=== PATIENT | female | born 1985 | race African-American/Black ===

== ENCOUNTER 2016-07-12 10:54 | Emergency (ER) | payer OTHER ==
--- NOTE | ~2016-07-12 | US106 ---
[facility] A Service of [facility] RADIOLOGY TEXT RESULTS PATIENT: YAMILETH OZUNA LOCATION: SED : 87 UNIT #: [id number] AGE: [address]: Jesus Bartlett MD SEX: F ORDER DR: [id number] [address] [address] [id number] E MR#: [id number] Acc #: [id number] NAME: YAMILETH OZUNA : 1985 SEX: F STUDY DATE/TIME: 07/12/2016 13:56 UNIT: SED ROOM: STUDY DESCRIPTION: US Preg Uterus Transvaginal Attending Physician: Jesus Bartlett M.D. Ordering Physician: Jesus Bartlett M.D. Primary Care Physician: [facility]. MEDICAL IMAGING REPORT This report is preliminary unless electronic signature is present. EXAM Pelvic sonogram. DATE OF EXAM 07/12/2016 CLINICAL HISTORY 30-year-old female positive test with beta HCG of over 60,000. Complains of abdominal pain, vomiting, cramping x1 week. TECHNIQUE Real-time examination was performed utilizing endovaginal scanning. FINDINGS Examination demonstrates a crescent-shaped anechoic collection within the endometrial cavity compatible with a gestational sac, but this represents an irregular gestational sac. Yolk sac is identified but no pole identified and no heart rate detected. This should be visualized with a quantitative HCG of over 60,000. There is also a small amount of fluid surrounding the gestational sac. Imaging of the adnexa demonstrates ovaries to be normal bilaterally. No adnexal masses. No free fluid. Gestational sac measures over 25 mm with a nonvisualization of a normal embryo. This in a combination with the absence of heart rate and pole, with a beta HCG of over 60,000 would be compatible with a failed intrauterine . IMPRESSION Abnormal gestational sac noted within the uterine cavity, but the absence of heart rate, absence of a defined pole as well as the abnormal appearance of the gestational sac are findings all compatible with failed intrauterine . [facility] A Service of [facility] RADIOLOGY TEXT RESULTS PATIENT: YAMILETH OZUNA LOCATION: SED : 87 UNIT #: [id number] AGE: [address]: Jesus Bartlett MD SEX: F ORDER DR: Dictated by... Chevy Morin M.D. THIS IS AN ELECTRONICALLY VERIFIED REPORT Chevy Morin M.D. at 07/13/2016 2:04 PM Whitney TD: 07/12/2016 23:03 JOB #: [id number] MEDICAL IMAGING REPORT
[~2016-07-12 10:54] MED LIST: ALBUTEROL17 GM INH; LEXAPRO PO; MOTRIN600 MG PO; PROPRANOLOL HCL10 MG PO
[2016-07-12 11:41] LABS: BASOPHIL# 0.1 X10e3 (0-0.3); BASOPHIL% 0.6 % (0-2.5); EOSINOPHIL# 0.1 X10e3 (0-0.7); EOSINOPHIL% 0.7 % (0.0-7.0); HEMATOCRIT 39.3 % (35.0-45.0); HEMOGLOBIN 13.2 gm/dL (12.0-16.0); LYMPHOCYTE% 23.8 % (17.0-45.0); MEAN CELL VOLUME 92.5 FL (83-96); MEAN CORPUSCULAR HEMOGLOBIN 31.1 PG (28-34); MEAN CORPUSCULAR HGB CONC 33.6 g/dL (30-36); MEAN PLATELET VOLUME 9.2 FL (6.5-11.5); MONOCYTE# 0.6 X10e3 (0-1.0); MONOCYTE% 7.7 % (3.0-12.0); NEUTROPHIL# 5.6 X10e3 (1.5-7.1); NEUTROPHIL% 67.2 % (40-75); PLATELET COUNT 145 X10e3 (140-420); RED BLOOD COUNT 4.24 X10e (3.90-5.30); RED CELL DISTRIBUTION WIDTH 12.9 % (11.0-15.5); WHITE BLOOD COUNT 8.4 X10e3 (4.0-10.5)
[2016-07-12 11:45] LABS: DIFF IND NO
[2016-07-12 11:47] LABS: URINE SOURCE CLEAN CATCH
[2016-07-12 11:49] LABS: URINE APPEARANCE CLEAR; URINE BILIRUBIN NEG (NEG); URINE BLOOD NEG (NEG); URINE COLOR YELLOW; URINE GLUCOSE NEG (NORM); URINE KETONE NEG (NEG); URINE LEUKOCYTE ESTERASE NEG (NEG); URINE NITRATE NEG (NEG); URINE PROTEIN NEG (NEG); URINE SPECIFIC GRAVITY 1.025 (1.003-1.035); URINE UROBILINOGEN 0.2 MG/DL (NORM)
[2016-07-12 11:50] LABS: MICRO INDICATED? NO
[2016-07-12 11:59] LABS: ALKALINE PHOSPHATASE 39 U/L (32-92); ALT (SGPT) 18 U/L (10-40); AMYLASE 21 U/L (0-46); AST (SGOT) 20 U/L (10-42); BILIRUBIN, DIRECT 0.1 mg/dL (0.0-0.2); BILIRUBIN,INDIRECT 0.5 mg/dL (0.0-0.9); BILIRUBIN,TOTAL 0.6 mg/dL (0.2-2.0); BLOOD UREA NITROGEN 10 mg/dL (9-23); CALCIUM SERUM 8.8 mg/dL (8.4-10.2); CARBON DIOXIDE 27 mmol/L (22-31); CHLORIDE 97 mmol/L (100-111); CREATININE SERUM 0.5 mg/dL (0.6-1.4); GLOM FILT RATE Estimated ABOVE60 mL/min (>60); GLUCOSE FASTING 87 mg/dL (70-110); LIPASE 22 U/L (22-51); POTASSIUM 3.6 mmol/L (3.5-5.1); PROTEIN TOTAL SERUM 7.4 g/dL (6.0-8.3); SODIUM 129 mmol/L (135-145)
== END 2016-07-12 16:46 | disposition home or self-care (01) ==
LOC: SED 10:54
PROVIDERS: Emergency Medicine
DX: O03.9 Complete or unspecified spontaneous abortion without complication (principal); O02.0 Blighted ovum and nonhydatidiform mole; O99.332 Smoking (tobacco) complicating pregnancy, second trimester; J45.909 Unspecified asthma, uncomplicated; F41.9 Anxiety disorder, unspecified; I10 Essential (primary) hypertension; F17.210 Nicotine dependence, cigarettes, uncomplicated; Z79.899 Other long term (current) drug therapy
CPT/HCPCS: 36415; 76817; 80048; 80076; 81003; 82150; 83690; 84702; 84703; 85025; 86900; 86901; 96361; 96374; 99284; J2405